=== PATIENT | male | born 1935 | race Caucasian/White ===

== ENCOUNTER 2016-11-10 10:29 | Emergency (ER) | payer MEDICARE ==
[2016-11-10 11:00] VITALS: BP 134/73
[2016-11-10] MEDS ORDERED: Acetaminophen TAB* 325 MG PO ONE (11:07)
--- NOTE | 2016-11-10 11:07 | UC ---
FLU HPI - HPI Summary HPI Summary: here with daughter complaint of waking up last night with feeling chills and body aches everything feels achy tested positive for influenza yesterday denies vomiting diarrhea and fever hasn't taken any medication for pain currently taking prednisone for RA - History of Current Complaint Chief Complaint: UCRespiratory Stated Complaint: FLU SYMPTOMS Time Seen by Provider: 11/10/16 11:01 Hx Obtained From: Patient, Family/[employer] - Allergy/Home Medications Allergies/Adverse Reactions: Allergies Allergy/AdvReac Type Severity Reaction Status Date / Time Penicillins Allergy Unknown Verified 11/10/16 10:49 Reaction Details Home Medications: Home Medications Atorvastatin* [Lipitor*] 10 mg PO DAILY 11/10/16 [History Confirmed 11/10/16] Cholecalciferol [Vitamin D] 1,000 unit PO BID 11/10/16 [History Confirmed ] Coenzyme Q10 (Ubidecarenone) [Coq-10] 1 tab PO DAILY 11/10/16 [History Confirmed 11/10/16] Hydrochlorothiazide TAB* [Hydrodiuril TAB*] 12.5 mg PO DAILY 11/10/16 [History Confirmed 11/10/16] Lactobacillus [Probiotic] 1 cap PO DAILY 11/10/16 [History Confirmed 11/10/16] Leflunomide (NF) [Arava (NF)] 10 mg PO DAILY 11/10/16 [History Confirmed ] Metoprolol Succinate [Toprol Xl] 25 mg PO DAILY 11/10/16 [History Confirmed 05/21] Multiple Vitamin [Multivitamins] 1 cap PO DAILY 11/10/16 [History Confirmed 05/21] predniSONE TAB* [Deltasone TAB*] 0 mg PO SEE INSTRUCTIONS 11/10/16 [History Confirmed 11/10/16] sulfaSALAzine TAB* [Azulfidine TAB*] 500 mg PO BID 11/10/16 [History Confirmed 11/10/16] PMH/Surg Hx/FS Hx/Imm Hx Previously Healthy: Yes Cardiovascular History Of: Reports: Cardiac Disorders - triple bipass, Hypertension - Surgical History Surgical History: Yes Surgery Procedure, Year, and Place: hemmroidectomy - Family History Known Family History: Negative: Cardiac Disease, Hypertension, Diabetes - Social History Occupation: Retired Alcohol Use: None Substance Use Type: None Smoking Status (MU): Never Smoked Tobacco - Immunization History Most Recent Influenza Vaccination: 07/2016 Review of Systems Constitutional: Chills, Fatigue Skin: Negative Eyes: Negative ENT: Negative, Nasal Discharge Respiratory: Cough Cardiovascular: Negative Gastrointestinal: Negative Genitourinary: Negative Motor: Negative Neurovascular: Negative Musculoskeletal: Negative Neurological: Negative Psychological: Negative All Other Systems Reviewed And Are Negative: Yes Physical Exam Triage Information Reviewed: Yes Appearance: Ill-Appearing, Thin Vital Signs: Initial Vital Signs Temp 98.9 F 11/10/16 10:55 Pulse 86 11/10/16 10:55 Resp 22 11/10/16 10:55 BP 134/73 11/10/16 10:55 Pulse Ox 98 11/10/16 10:55 Vital Signs Reviewed: Yes Eyes: Positive: Conjunctiva Clear ENT: Positive: Pharynx normal, Nasal congestion, Nasal drainage, TMs normal Neck: Positive: No Lymphadenopathy Respiratory: Positive: Lungs clear, Normal breath sounds, No respiratory distress, No accessory muscle use Cardiovascular: Positive: RRR, No Murmur, Pulses Normal Abdomen Description: Positive: Nontender, Soft Bowel Sounds: Positive: Present Musculoskeletal: Positive: Edema @ - right ankle 1+ Neurological: Positive: Alert, Fatigued Psychological Exam: Normal Skin Exam: Normal Flu Course/Dx - Course Course Of Treatment: exam completed. will treat for influenza d/t with illness-tested postive in urgent care 11/09/16. will start tamiflu d/t age, RA and taking prednisone. close followup with PCP- [facility] - Differential Dx/Diagnosis Provider Diagnoses: influenza Discharge - Discharge Plan Condition: Stable Disposition: HOME Prescriptions: Oseltamivir CAP* [Tamiflu CAP*] 75 mg PO BID #10 cap Patient Education Materials: Influenza (ED) Referrals: [facility] [place] [facility] [Outside] Additional Instructions: Please call [facility] care provider so your condition can be rechecked in 1-2 days If your symtpoms worsen please call 911 or proceed to the emergency room. TREATING THE FLU (Influenza) What is the Flu? Influenza, or "flu," is an infection of the breathing tubes and lungs. Flu happens mostly in late fall, winter, or early spring. It is very easily spread from one person to another by coughing and sneezing. The flu affects people of all ages. Symptoms Might Include: Stuffed up or runny nose Cough which may be worse at night that lasts for one to two weeks Fever especially the first 2 days and which may go up and down Headache and muscle aches Mild sore throat Poor appetite Tiredness Influenza (Flu) Vaccine Much of the illness and caused by influenza can be prevented by annual flu vaccination. It is especially recommended for people who are at high risk. Those at higher risk include all people aged 65 years or older and people of any age with chronic diseases of the heart, lung or kidneys, diabetes, immunosuppression, or severe forms of anemia. Other high-risk groups are, women who will be more than 3 months during the flu season, and children. Treatment Recommendations: Take acetaminophen (Tylenol, etc.) for aches and fever. Do not ever give aspirin to children. Drink lots of fluids. Use a cool-mist humidifier night and day if it helps you. Keep room at a comfortable temperature for you. Do not overheat the room. Do not overdress. Do not smoke. Get as much rest as you can. Call Your Doctor or Return Here IF: You have a fever that lasts for more than three days. You have trouble breathing. You begin to cough up green, yellow, or red mucous. Your cough gets worse or you have chest pain with coughing or deep breathing. You start to have any other symptoms that worry you.
== END 2016-11-10 11:20 | disposition home or self-care (01) ==
LOC: UCCORT 10:29
DX: J11.1 Influenza due to unidentified influenza virus with other respiratory manifestations (principal); I10 Essential (primary) hypertension; Z95.1 Presence of aortocoronary bypass graft; Z88.0 Allergy status to penicillin
CPT/HCPCS: 99212; A9270-GY; G0463

== ENCOUNTER 2020-08-08 05:16 | Inpatient (IN) ==
[2020-08-08 06:42] LABS: Hematocrit 29 % (42-52); Hemoglobin 9.3 g/dL (14.0-18.0); Mean Corpuscular HGB Conc 32 g/dL (31-36); Mean Corpuscular Hemoglobin 25 pg (27-31); Mean Corpuscular Volume 80 fL (80-94); Mean Platelet Volume 7.7 fL (7.4-10.4); Platelet Count 87 10^3/uL (150-450); Red Blood Count 3.66 10^6 /uL (4.18-5.48); Red Cell Distribution Width 19 % (10-15); White Blood Count 7.5 10^3/uL (3.5-10.8)
[2020-08-08 06:56] LABS: ALT 53 U/L (7-52); Albumin 3.3 g/dL (3.2-5.2); Albumin/Globulin Ratio 1.4 (1-3); Alkaline Phosphatase 202 U/L (34-104); BUN/Creatinine Ratio 28.7 (8-20); Blood Urea Nitrogen 33 mg/dL (6-24); CO2 Carbon Dioxide 34 mmol/L (22-32); Calcium 8.5 mg/dL (8.6-10.3); Chloride 82 mmol/L (101-111); EGFR African American 72.8 (>60); EGFR Non-African American 60.2 (>60); Globulin 2.3 g/dL (2-4); Glucose 82 mg/dL (70-100); Sodium 122 mmol/L (135-145); Total Protein 5.6 g/dL (6.4-8.9)
[2020-08-08 06:59] LABS: Troponin I 0.09 ng/mL (<0.03)
[2020-08-08 07:13] LABS: Anion Gap 6 mmol/L (2-11); Potassium 4.1 mmol/L (3.5-5.0)
[2020-08-08 07:14] LABS: AST 71 U/L (13-39)
[2020-08-08 07:57] LABS: ABS Basophils 0.1 10^3/ul (0-0.2); ABS Monocytes 0.8 10^3/ul (0-0.8); ABS Neutrophils 5.6 10^3/ul (1.5-7.7); Eosinophil % 0.6 %; Lymphocyte % 13.3 %; Nucleated Red Blood Cells % 0.2
[2020-08-08 09:34] LABS: Urine Appearance Cloudy; Urine Bilirubin Negative (Negative); Urine Blood Negative (Negative); Urine Color Amber; Urine Glucose Negative (Negative); Urine Ketones Negative (Negative); Urine Nitrite Negative (Negative); Urine Protein 1+(30 mg/dL) (Negative); Urine Specific Gravity 1.036 (1.010-1.030); Urine Urobilinogen Negative (Negative)
[2020-08-08 09:49] LABS: Urine Bacteria Absent (Absent); Urine Red Blood Cell Trace(0-2/hpf) (Absent); Urine White Blood Cell 1+(6-10/hpf) (Absent)
[2020-08-08 09:55] LABS: Troponin I 0.09 ng/mL (<0.03)
[2020-08-08] MEDS: Furosemide 100 mg/10 ml IV 100 MG in NS 0.9% 100 ml BAG 90 ML IV SCH (10:28)
[2020-08-08] MEDS ORDERED: Furosemide 20 mg/2 ml IV VIAL IV ONE (10:45)
[2020-08-08 11:59] LABS: % Iron Saturation 6 % (15-55); Iron 21 ug/dL (50-212); Total Iron Binding Capacity 375 mcg/dL (250-450); Transferrin 268 mg/dL (203-362); Unsaturated Iron Binding < 360 ug/dL
[2020-08-08 12:19] LABS: Ferritin 41.6 ng/mL (24-336)
[2020-08-08] MEDS ORDERED: Digoxin IV 0.5 MG/2 ML AMP (0.25 MG/ML) IV SLOW PU ONE (12:58)
[2020-08-08] MEDS ORDERED: Iron Sucrose 200 MG in NS 0.9% 100 ml BAG 100 ML IVPB ONE (13:30)
[2020-08-08 13:35] LABS: Digoxin 1.3 ng/ml (0.8-2.0)
[2020-08-08 13:49] LABS: TSH Ultra Thyroid Stim Horm 2.73 mcIU/mL (0.34-5.60)
[2020-08-08] MEDS: Leflunomide 10 mg TAB (NF) PO SCH (14:13)
[2020-08-08 14:58] LABS: Magnesium 2.2 mg/dL (1.9-2.7); Potassium 3.8 mmol/L (3.5-5.0)
[2020-08-08 15:06] LABS: Troponin I 0.09 ng/mL (<0.03)
[2020-08-08 17:35] LABS: C Reactive Protein 58.37 mg/L (<8.01)
[2020-08-08 18:02] LABS: Folate 19.96 ng/mL (>3.99)
[2020-08-08 18:06] LABS: Vitamin D Total 25(OH) 61.2 ng/mL (20-50)
[2020-08-09] MEDS: Furosemide 100 mg/10 ml IV 100 MG in NS 0.9% 100 ml BAG 90 ML IV SCH (01:17)
[2020-08-09 05:42] LABS: Anion Gap 9 mmol/L (2-11); BUN/Creatinine Ratio 29.8 (8-20); Blood Urea Nitrogen 31 mg/dL (6-24); CO2 Carbon Dioxide 31 mmol/L (22-32); Calcium 8.5 mg/dL (8.6-10.3); Chloride 84 mmol/L (101-111); EGFR African American 81.7 (>60); EGFR Non-African American 67.6 (>60); Glucose 110 mg/dL (70-100); Potassium 3.3 mmol/L (3.5-5.0); Sodium 124 mmol/L (135-145)
[2020-08-09 05:52] LABS: ABS Eosinophils 0.1 10^3/ul (0-0.6); ABS Lymphocytes 0.6 10^3/ul (1.0-4.8); ABS Monocytes 0.7 10^3/ul (0-0.8); ABS Neutrophils 6.9 10^3/ul (1.5-7.7); Eosinophil % 0.7 %; Hematocrit 31 % (42-52); Hemoglobin 9.7 g/dL (14.0-18.0); Lymphocyte % 7.6 %; Mean Corpuscular HGB Conc 32 g/dL (31-36); Mean Corpuscular Hemoglobin 25 pg (27-31); Mean Corpuscular Volume 80 fL (80-94); Nucleated Red Blood Cells % 0.4; Platelet Count 85 10^3/uL (150-450); Red Blood Count 3.85 10^6 /uL (4.18-5.48); Red Cell Distribution Width 20 % (10-15); White Blood Count 8.4 10^3/uL (3.5-10.8)
[2020-08-09] MEDS ORDERED: Furosemide 40 mg/4 ml IV VIAL IV SLOW PU ONE (09:00)
[2020-08-09] MEDS: Leflunomide 10 mg TAB (NF) PO SCH (09:15)
[2020-08-09] MEDS ORDERED: Digoxin IV 0.5 MG/2 ML AMP (0.25 MG/ML) IV SLOW PU ONE (12:05)
[2020-08-09 12:56] LABS: Troponin I 0.06 ng/mL (<0.03)
[2020-08-09] MEDS: Potassium Chloride LIQUID 20 MEQ/15 ML LIQUID PO SCH ×2 (13:17→17:30)
[2020-08-09 21:42] LABS: Hematocrit 31 % (42-52); Hemoglobin 9.6 g/dL (14.0-18.0)
[2020-08-10 07:06] LABS: Hematocrit 29 % (42-52); Hemoglobin 9.2 g/dL (14.0-18.0); Mean Corpuscular HGB Conc 32 g/dL (31-36); Mean Corpuscular Hemoglobin 25 pg (27-31); Mean Corpuscular Volume 80 fL (80-94); Mean Platelet Volume 7.2 fL (7.4-10.4); Platelet Count 95 10^3/uL (150-450); Red Blood Count 3.63 10^6 /uL (4.18-5.48); Red Cell Distribution Width 19 % (10-15); White Blood Count 7.5 10^3/uL (3.5-10.8)
[2020-08-10 07:17] LABS: Calcium 8.2 mg/dL (8.6-10.3); EGFR African American 85.5 (>60); EGFR Non-African American 70.7 (>60); Magnesium 1.9 mg/dL (1.9-2.7); Potassium 3.2 mmol/L (3.5-5.0)
[2020-08-10] MEDS: Potassium Chlor 20 meq TAB.ER PO SCH ×3 (08:43→20:32)
[2020-08-10] MEDS: Leflunomide 10 mg TAB (NF) PO SCH (08:44)
[2020-08-10] MEDS: KCL 10 MEQ/50 ML IVPREMIX 10 MEQ/50 ML BAG IV SCH ×3 (08:44→11:10)
[2020-08-10] MEDS ORDERED: Furosemide 40 mg/4 ml IV VIAL IV SLOW PU ONE (09:00)
[2020-08-10 09:12] LABS: ABS Basophils 0.1 10^3/ul (0-0.2); ABS Eosinophils 0.1 10^3/ul (0-0.6); ABS Lymphocytes 1.1 10^3/ul (1.0-4.8); ABS Monocytes 0.6 10^3/ul (0-0.8); ABS Neutrophils 5.5 10^3/ul (1.5-7.7); Eosinophil % 1.3 %; Nucleated Red Blood Cells % 0.2
[2020-08-10] MEDS: ceFAZolin 1 GM ADVAN 1 GM in NS 0.9% 50 ML 50 ML IVPB SCH ×2 (11:33→17:09)
[2020-08-10] MEDS: Iron Sucrose 200 MG in NS 0.9% 100 ml BAG 100 ML IVPB SCH (14:23)
[2020-08-10 14:49] LABS: BUN/Creatinine Ratio 23.4 (8-20); Calcium 8.7 mg/dL (8.6-10.3); EGFR African American 79.1 (>60); EGFR Non-African American 65.4 (>60); Potassium 3.1 mmol/L (3.5-5.0)
[2020-08-10 20:08] LABS: BUN/Creatinine Ratio 22.9 (8-20); Calcium 9.1 mg/dL (8.6-10.3); EGFR African American 77.4 (>60); Magnesium 1.9 mg/dL (1.9-2.7); Potassium 4.2 mmol/L (3.5-5.0)
[2020-08-11] MEDS: Potassium Chlor 20 meq TAB.ER PO SCH ×2 (00:25→04:11)
[2020-08-11] MEDS: ceFAZolin 1 GM ADVAN 1 GM in NS 0.9% 50 ML 50 ML IVPB SCH ×2 (01:32→11:04)
[2020-08-11 07:55] LABS: BUN/Creatinine Ratio 22.7 (8-20); Calcium 8.8 mg/dL (8.6-10.3); EGFR African American 88.6 (>60); EGFR Non-African American 73.2 (>60); Magnesium 1.9 mg/dL (1.9-2.7); Potassium 4.2 mmol/L (3.5-5.0)
[2020-08-11] MEDS: Iron Sucrose 200 MG in NS 0.9% 100 ml BAG 100 ML IVPB SCH (08:30)
[2020-08-11] MEDS: CMCS:Leflunomide 10 mg TAB (NF) PO SCH (11:03)
[2020-08-11 19:26] LABS: Hematocrit 31 % (42-52); Hemoglobin 9.9 g/dL (14.0-18.0)
[2020-08-11] MEDS: SULFASALAZINE 500 MG PO SCH (20:48)
[2020-08-12 06:43] LABS: Hematocrit 29 % (42-52); Hemoglobin 9.2 g/dL (14.0-18.0); Mean Corpuscular HGB Conc 32 g/dL (31-36); Mean Corpuscular Hemoglobin 26 pg (27-31); Mean Corpuscular Volume 82 fL (80-94); Mean Platelet Volume 7.1 fL (7.4-10.4); Platelet Count 94 10^3/uL (150-450); Red Blood Count 3.55 10^6 /uL (4.18-5.48); Red Cell Distribution Width 19 % (10-15); White Blood Count 7.6 10^3/uL (3.5-10.8)
[2020-08-12 07:32] LABS: ABS Basophils 0.1 10^3/ul (0-0.2); ABS Eosinophils 0.1 10^3/ul (0-0.6); ABS Monocytes 0.7 10^3/ul (0-0.8); ABS Neutrophils 5.7 10^3/ul (1.5-7.7); Eosinophil % 1.1 %; Lymphocyte % 13.5 %; Nucleated Red Blood Cells % 0.2
[2020-08-12 07:35] LABS: Polychromasia 1+
[2020-08-12] MEDS: CMCS:Leflunomide 10 mg TAB (NF) PO SCH (08:54)
[2020-08-12] MEDS: SULFASALAZINE 500 MG PO SCH ×2 (08:54→22:20)
[2020-08-12] MEDS: Iron Sucrose 200 MG in NS 0.9% 100 ml BAG 100 ML IVPB SCH (08:54)
[2020-08-13 06:20] LABS: BUN/Creatinine Ratio 19.5 (8-20); Calcium 8.8 mg/dL (8.6-10.3); EGFR African American 100.4 (>60); Potassium 2.9 mmol/L (3.5-5.0)
[2020-08-13] MEDS ORDERED: Potassium Chlor 20 meq TAB.ER PO ONE ×3 (09:40→19:23)
[2020-08-13] MEDS: SULFASALAZINE 500 MG PO SCH ×2 (09:45→21:09)
[2020-08-13] MEDS: CMCS:Leflunomide 10 mg TAB (NF) PO SCH (09:45)
[2020-08-13 09:59] LABS: Magnesium 1.7 mg/dL (1.9-2.7)
[2020-08-13] MEDS ORDERED: Magnesium Sulfate 2 gm BAG 2 GM/50 ML BAG IVPB ONE (10:41)
[2020-08-13] MEDS ORDERED: Iron Sucrose 200 MG in NS 0.9% 100 ml BAG 100 ML IVPB ONE (11:00)
[2020-08-13] MEDS: Iron Sucrose 200 MG in NS 0.9% 100 ml BAG 100 ML IVPB SCH (11:20)
[2020-08-13] MEDS: KCL 20 MEQ/100 ML IVPREMIX 20 MEQ/100 ML BAG IV SCH ×2 (14:18→19:26)
[2020-08-13 18:01] LABS: BUN/Creatinine Ratio 15.5 (8-20); Calcium 8.9 mg/dL (8.6-10.3); EGFR African American 63.7 (>60); EGFR Non-African American 52.7 (>60); Magnesium 2.2 mg/dL (1.9-2.7); Potassium 3.3 mmol/L (3.5-5.0)
[2020-08-13] MEDS ORDERED: KCL 20 MEQ/100 ML IVPREMIX 0 MEQ/0 ML BAG ONE (18:34)
[2020-08-14 08:25] LABS: BUN/Creatinine Ratio 16.7 (8-20); Calcium 9.1 mg/dL (8.6-10.3); EGFR African American 73.5 (>60); EGFR Non-African American 60.8 (>60); Magnesium 1.9 mg/dL (1.9-2.7); Potassium 4.1 mmol/L (3.5-5.0)
[2020-08-14] MEDS: CMCS:Leflunomide 10 mg TAB (NF) PO SCH (09:13)
[2020-08-14] MEDS: SULFASALAZINE 500 MG PO SCH ×2 (09:14→21:19)
[2020-08-14] MEDS ORDERED: acetaZOLAMIDE IV 500 MG in NS 0.9% 50 ML 50 ML IVPB ONE (09:22)
[2020-08-14 13:32] LABS: Calcium 9.1 mg/dL (8.6-10.3); EGFR African American 85.5 (>60); EGFR Non-African American 70.7 (>60); Potassium 3.9 mmol/L (3.5-5.0)
[2020-08-14] MEDS ORDERED: Potassium Chlor 20 meq TAB.ER PO ONE (16:01)
[2020-08-15 07:15] LABS: BUN/Creatinine Ratio 21.3 (8-20); Calcium 8.9 mg/dL (8.6-10.3); EGFR African American 97.8 (>60); EGFR Non-African American 80.9 (>60); Magnesium 1.9 mg/dL (1.9-2.7); Potassium 3.1 mmol/L (3.5-5.0)
[2020-08-15] MEDS: SULFASALAZINE 500 MG PO SCH ×2 (09:13→20:44)
[2020-08-15] MEDS: CMCS:Leflunomide 10 mg TAB (NF) PO SCH (09:14)
[2020-08-15] MEDS ORDERED: Potassium Chlor 20 meq TAB.ER PO ONE ×2 (09:22→13:00)
[2020-08-16 07:42] LABS: ABS Basophils 0.1 10^3/ul (0-0.2); ABS Eosinophils 0.1 10^3/ul (0-0.6); ABS Lymphocytes 0.8 10^3/ul (1.0-4.8); ABS Monocytes 0.5 10^3/ul (0-0.8); ABS Neutrophils 5.1 10^3/ul (1.5-7.7); Hematocrit 31 % (42-52); Hemoglobin 9.6 g/dL (14.0-18.0); Lymphocyte % 12.7 %; Mean Corpuscular HGB Conc 31 g/dL (31-36); Mean Corpuscular Hemoglobin 27 pg (27-31); Mean Corpuscular Volume 85 fL (80-94); Mean Platelet Volume 7.5 fL (7.4-10.4); Nucleated Red Blood Cells % 0.1; Platelet Count 80 10^3/uL (150-450); Red Blood Count 3.59 10^6 /uL (4.18-5.48); Red Cell Distribution Width 21 % (10-15); White Blood Count 6.6 10^3/uL (3.5-10.8)
[2020-08-16 07:58] LABS: BUN/Creatinine Ratio 22.2 (8-20); Calcium 9.1 mg/dL (8.6-10.3); EGFR African American 86.5 (>60); EGFR Non-African American 71.5 (>60); Potassium 4.2 mmol/L (3.5-5.0)
[2020-08-16] MEDS: CMCS:Leflunomide 10 mg TAB (NF) PO SCH (08:36)
[2020-08-16] MEDS: SULFASALAZINE 500 MG PO SCH ×2 (09:40→22:27)
[2020-08-16 09:43] LABS: C Reactive Protein 4.22 mg/L (<8.01)
[2020-08-16 14:42] LABS: Hematocrit 31 % (42-52); Hemoglobin 9.8 g/dL (14.0-18.0)
[2020-08-17 06:38] LABS: BUN/Creatinine Ratio 21.9 (8-20); Calcium 9.1 mg/dL (8.6-10.3); EGFR African American 89.7 (>60); EGFR Non-African American 74.1 (>60); Potassium 3.7 mmol/L (3.5-5.0)
[2020-08-17 07:23] LABS: ABS Basophils 0.1 10^3/ul (0-0.2); ABS Eosinophils 0.1 10^3/ul (0-0.6); ABS Lymphocytes 0.9 10^3/ul (1.0-4.8); ABS Monocytes 0.6 10^3/ul (0-0.8); ABS Neutrophils 5.1 10^3/ul (1.5-7.7); Hematocrit 31 % (42-52); Hemoglobin 9.8 g/dL (14.0-18.0); Mean Corpuscular HGB Conc 31 g/dL (31-36); Mean Corpuscular Hemoglobin 27 pg (27-31); Mean Corpuscular Volume 85 fL (80-94); Mean Platelet Volume 7.4 fL (7.4-10.4); Nucleated Red Blood Cells % 0.1; Platelet Count 78 10^3/uL (150-450); Red Blood Count 3.71 10^6 /uL (4.18-5.48); Red Cell Distribution Width 23 % (10-15); White Blood Count 6.8 10^3/uL (3.5-10.8)
[2020-08-17] MEDS: CMCS:Leflunomide 10 mg TAB (NF) PO SCH (08:38)
[2020-08-17] MEDS: SULFASALAZINE 500 MG PO SCH ×2 (08:38→21:44)
[2020-08-17] MEDS ORDERED: Senna TAB 8.6 mg TAB PO PRN (13:50)
[2020-08-18 06:27] LABS: ABS Lymphocytes 0.5 10^3/ul (1.0-4.8); ABS Monocytes 0.4 10^3/ul (0-0.8); ABS Neutrophils 4.1 10^3/ul (1.5-7.7); Eosinophil % 0.1 %; Hematocrit 32 % (42-52); Hemoglobin 10.2 g/dL (14.0-18.0); Lymphocyte % 10.6 %; Mean Corpuscular HGB Conc 32 g/dL (31-36); Mean Corpuscular Hemoglobin 27 pg (27-31); Mean Corpuscular Volume 85 fL (80-94); Mean Platelet Volume 7.3 fL (7.4-10.4); Nucleated Red Blood Cells % 0.2; Platelet Count 81 10^3/uL (150-450); Red Blood Count 3.82 10^6 /uL (4.18-5.48); Red Cell Distribution Width 26 % (10-15); White Blood Count 5.1 10^3/uL (3.5-10.8)
[2020-08-18 06:37] LABS: BUN/Creatinine Ratio 22.7 (8-20); Calcium 9.1 mg/dL (8.6-10.3); EGFR African American 88.6 (>60); EGFR Non-African American 73.2 (>60); Potassium 3.8 mmol/L (3.5-5.0)
[2020-08-18] MEDS: SULFASALAZINE 500 MG PO SCH ×2 (09:44→20:07)
[2020-08-18] MEDS: CMCS:Leflunomide 10 mg TAB (NF) PO SCH (09:44)
[2020-08-19] MEDS: CMCS:Leflunomide 10 mg TAB (NF) PO SCH (08:40)
[2020-08-19] MEDS: SULFASALAZINE 500 MG PO SCH ×2 (08:40→20:32)
[2020-08-19 09:54] LABS: Hematocrit 35 % (42-52); Hemoglobin 10.8 g/dL (14.0-18.0); Mean Corpuscular HGB Conc 31 g/dL (31-36); Mean Corpuscular Hemoglobin 27 pg (27-31); Mean Corpuscular Volume 88 fL (80-94); Mean Platelet Volume 7.7 fL (7.4-10.4); Platelet Count 106 10^3/uL (150-450); Red Blood Count 3.96 10^6 /uL (4.18-5.48); Red Cell Distribution Width 24 % (10-15); White Blood Count 9.2 10^3/uL (3.5-10.8)
[2020-08-19 10:23] LABS: Anion Gap 6 mmol/L (2-11); CO2 Carbon Dioxide 34 mmol/L (22-32); Chloride 89 mmol/L (101-111); Potassium 4.3 mmol/L (3.5-5.0); Sodium 129 mmol/L (135-145)
[2020-08-19 10:28] LABS: BUN/Creatinine Ratio 22.3 (8-20); Blood Urea Nitrogen 21 mg/dL (6-24); EGFR African American 91.9 (>60); EGFR Non-African American 75.9 (>60); Glucose 133 mg/dL (70-100)
[2020-08-19 11:04] LABS: ABS Basophils 0.1 10^3/ul (0-0.2); ABS Eosinophils 0.1 10^3/ul (0-0.6); ABS Lymphocytes 1.5 10^3/ul (1.0-4.8); ABS Monocytes 0.9 10^3/ul (0-0.8); ABS Neutrophils 6.7 10^3/ul (1.5-7.7); Eosinophil % 0.5 %; Lymphocyte % 16.7 %; Nucleated Red Blood Cells % 0.1
[2020-08-19 13:29] LABS: Troponin I 0.06 ng/mL (<0.03)
[2020-08-19] MEDS ORDERED: Furosemide 20 mg/2 ml IV VIAL IV ONE (13:35)
[2020-08-20 06:25] LABS: Hematocrit 33 % (42-52); Hemoglobin 10.5 g/dL (14.0-18.0); Mean Corpuscular HGB Conc 32 g/dL (31-36); Mean Corpuscular Hemoglobin 28 pg (27-31); Mean Corpuscular Volume 87 fL (80-94); Mean Platelet Volume 7.6 fL (7.4-10.4); Platelet Count 89 10^3/uL (150-450); Red Blood Count 3.79 10^6 /uL (4.18-5.48); Red Cell Distribution Width 27 % (10-15); White Blood Count 6.8 10^3/uL (3.5-10.8)
[2020-08-20 06:37] LABS: BUN/Creatinine Ratio 22.5 (8-20); Calcium 8.7 mg/dL (8.6-10.3); EGFR African American 83.6 (>60); EGFR Non-African American 69.1 (>60); Potassium 3.8 mmol/L (3.5-5.0)
[2020-08-20 06:47] LABS: ABS Lymphocytes 0.9 10^3/ul (1.0-4.8); ABS Monocytes 0.8 10^3/ul (0-0.8); ABS Neutrophils 5.1 10^3/ul (1.5-7.7); ABS Nucleated RBC 0.1 10^3/ul; Eosinophil % 0.4 %; Lymphocyte % 12.9 %; Nucleated Red Blood Cells % 0.7
[2020-08-20] MEDS: CMCS:Leflunomide 10 mg TAB (NF) PO SCH (09:13)
[2020-08-20] MEDS: SULFASALAZINE 500 MG PO SCH ×2 (09:17→22:09)
[2020-08-21] MEDS: CMCS:Leflunomide 10 mg TAB (NF) PO SCH (10:10)
[2020-08-21] MEDS: SULFASALAZINE 500 MG PO SCH ×2 (10:11→22:17)
[2020-08-21] MEDS ORDERED: Polyethylene Glycol 3350 17 GM PACKET PO PRN (11:20)
[2020-08-22] MEDS: SULFASALAZINE 500 MG PO SCH ×2 (08:57→21:47)
[2020-08-22] MEDS: CMCS:Leflunomide 10 mg TAB (NF) PO SCH (08:57)
[2020-08-23] MEDS: SULFASALAZINE 500 MG PO SCH ×2 (09:29→20:30)
[2020-08-23] MEDS: CMCS:Leflunomide 10 mg TAB (NF) PO SCH (09:29)
[2020-08-24] MEDS: CMCS:Leflunomide 10 mg TAB (NF) PO SCH (09:11)
[2020-08-24] MEDS: SULFASALAZINE 500 MG PO SCH ×2 (09:11→22:10)
[2020-08-25] MEDS ORDERED: Morphine 2 MG/ML SYRINGE IV PRN (09:02)
[2020-08-25] MEDS: SULFASALAZINE 500 MG PO SCH ×2 (10:29→21:17)
[2020-08-25] MEDS: CMCS:Leflunomide 10 mg TAB (NF) PO SCH (10:29)
[2020-08-26] MEDS ORDERED: LORazepam 2 mg VIAL 1 ml IV PUSH ONE (04:10)
[2020-08-26] MEDS ORDERED: Lorazepam PYXIS KEY PRN (04:10)
[2020-08-26] MEDS: CMCS:Leflunomide 10 mg TAB (NF) PO SCH ×3 (08:11→12:56)
[2020-08-26] MEDS: SULFASALAZINE 500 MG PO SCH ×3 (08:12→12:56)
[2020-08-26 08:13] VITALS: BP 130/72
== END 2020-08-26 14:40 | disposition home or self-care (01) | DRG 291 ==
LOC: ED 05:16 → MED 09:57 → MEDTELE 11:10 → MED 08-16 04:19
PROVIDERS: ADMIT Internal Medicine; ATTEND Internal Medicine